=== PATIENT | male | born 1980 | race American Indian/Alaskan Native ===

== ENCOUNTER 2017-09-13 07:56 | Emergency (ER) | payer OTHER ==
[2017-09-13 08:03] VITALS: BP 138/93
--- NOTE | 2017-09-13 09:55 | Emergency Department Report ---
Blank Doc - Documentation Documentation: Patient is a [id number] male with past history diabetes with one month of right lower extremity swelling. Patient states that he also has an open sore on the bottom of his foot at this time has been there for several weeks as well. Patient states it is a tight sensation is aching 6 out of 10 discomfort. Patient was told by his primary doctor month ago that nothing was wrong with his leg. Brief physical exam patient's leg is obviously swollen compared to the left lower extremity. Ultrasound be done to rule out DVT. The patient may have a vascular insufficiency causing edema as well.
--- NOTE | 2017-09-13 11:11 | Emergency Department Report ---
ED Lower Extremity HPI - General Chief Complaint: Extremity Injury, Lower Stated Complaint: R KNEE SWELLING Time Seen by Provider: 09/13/17 09:42 Source: patient Mode of arrival: Ambulatory Limitations: Physical Limitation - History of Present Illness Initial Comments: This is a 37-year-old male nontoxic, well nourished in appearance, no acute signs of distress presents to the ED with c/o of acute on chronic intermittent right lower leg swelling x1 month. Patient stated he is followed by this with primary care doctor and had several tests and exam for DVT with negative. Also stated had xrays within normal limits. Patient describes pain as tight sensation and aching with level of 6/10. Patient denies any trauma. Patient denies any joint swelling, fever, chills, joint redness, headache, stiff neck, back pain, nausea, vomiting, chest pain, shortness of breathe. Patient denies any recent falls, long car rides over his hospital stays. Patient denies any calf tenderness or redness. Patient denies any allergies. Past medical history includes diabetes. -: month(s) (1) Injury: Leg: Right Severity: mild Severity scale (0 -10): 6 Improves With: nothing Worsens With: nothing Associated Symptoms: swelling, ambulatory. denies: snap/pop sensation, numbness , tingling, unable to bear weight, able to partially bear weight - Related Data Home Medications Medication Instructions Recorded Confirmed Last Taken Lisinopril [Zestril TAB] 10 mg PO QDAY 09/22/13 02/22/15 11/09/13 metFORMIN [Glucophage] 1,000 mg PO BID 09/22/13 02/22/15 11/09/13 Insulin NPH/Regular [NovoLIN 70/30] 15 unit SQ QAM 02/22/15 02/22/15 Unknown Insulin NPH/Regular [NovoLIN 70/30] 15 unit SQ QPM 02/22/15 02/22/15 Unknown Previous Rx's Medication Instructions Recorded Last Taken Type Clindamycin [Clindamycin CAP] 450 mg PO TID #90 tab 03/05/15 Unknown Rx oxyCODONE [Roxicodone TAB] 10 mg PO Q6H PRN #30 tablet 03/05/15 Unknown Rx Ibuprofen [Motrin] 600 mg PO Q8H PRN #30 tablet 09/13/17 Unknown Rx Allergies Allergy/AdvReac Type Severity Reaction Status Date / Time No Known Allergies Allergy Verified 09/13/17 07:59 ED Review of Systems ROS: Stated complaint: R KNEE SWELLING Other details as noted in HPI Constitutional: denies: chills, fever Eyes: denies: eye pain, eye discharge, vision change ENT: denies: ear pain, throat pain Respiratory: denies: cough, shortness of breath, wheezing Cardiovascular: denies: chest pain, palpitations Endocrine: no symptoms reported Gastrointestinal: denies: abdominal pain, nausea, diarrhea Genitourinary: denies: urgency, dysuria Musculoskeletal: denies: back pain, joint swelling, arthralgia Skin: denies: rash, lesions Neurological: denies: headache, weakness, paresthesias Psychiatric: denies: anxiety, depression Hematological/Lymphatic: denies: easy bleeding, easy bruising ED Past Medical Hx - Past Medical History Hx Hypertension: Yes Hx Congestive Heart Failure: No Hx Diabetes: Yes Hx Asthma: No Hx COPD: No - Surgical History Additional Surgical History: right knee X 2, broken nose, boil on right arm - Social History Smoking Status: Current Every Day Smoker Substance Use Type: Alcohol - Medications Home Medications: Home Medications Medication Instructions Recorded Confirmed Last Taken Type Lisinopril [Zestril TAB] 10 mg PO QDAY 09/22/13 02/22/15 11/09/13 History metFORMIN [Glucophage] 1,000 mg PO BID 09/22/13 02/22/15 11/09/13 History Insulin NPH/Regular [NovoLIN 70/30] 15 unit SQ QAM 02/22/15 02/22/15 Unknown History Insulin NPH/Regular [NovoLIN 70/30] 15 unit SQ QPM 02/22/15 02/22/15 Unknown History Clindamycin [Clindamycin CAP] 450 mg PO TID #90 tab 03/05/15 Unknown Rx oxyCODONE [Roxicodone TAB] 10 mg PO Q6H PRN #30 tablet 03/05/15 Unknown Rx Ibuprofen [Motrin] 600 mg PO Q8H PRN #30 tablet 09/13/17 Unknown Rx ED Physical Exam - General Limitations: Physical Limitation General appearance: alert, in no apparent distress - Head Head exam: Present: atraumatic, normocephalic - Eye Eye exam: Present: normal appearance - ENT ENT exam: Present: normal exam, mucous membranes moist - Neck Neck exam: Present: normal inspection, full ROM. Absent: tenderness, meningismus, lymphadenopathy - Respiratory Respiratory exam: Present: normal lung sounds bilaterally. Absent: respiratory distress, wheezes, rales, rhonchi, stridor, chest wall tenderness, accessory muscle use, decreased breath sounds, prolonged expiratory - Cardiovascular Cardiovascular Exam: Present: regular rate, normal rhythm, normal heart sounds. Absent: irregular rhythm, systolic murmur, diastolic murmur, rubs, gallop - GI/Abdominal GI/Abdominal exam: Present: soft, normal bowel sounds. Absent: distended, tenderness, guarding, rebound, rigid, diminished bowel sounds - Rectal Rectal exam: Present: deferred - Extremities Exam Extremities exam: Present: normal inspection, full ROM, tenderness, normal capillary refill, pedal edema. Absent: joint swelling, calf tenderness - Expanded Lower Extremity Exam Right Hip exam: Present: normal inspection, full ROM Upper Leg exam: Present: normal inspection, full ROM Knee exam: Present: normal inspection, full ROM, full knee extension. Absent: tenderness, swelling, abrasion, laceration, ecchymosis, deformity, crepidus, dislocation, erythema, effusion, pain w/ pronation/supination, posterior draw sign, pain/laxity with valgus, pain/laxity with varus Lower Leg exam: Present: normal inspection, full ROM, tenderness, swelling. Absent: abrasion, laceration, ecchymosis, deformity, crepidus, dislocation, erythema, palpable cord, Edgardo's sign Ankle exam: Present: normal inspection, full ROM, tenderness, swelling. Absent : abrasion, laceration, ecchymosis, deformity, crepidus, dislocation, erythema, anterior draw sign Foot/Toe exam: Present: normal inspection, full ROM, tenderness, swelling. Absent: abrasion, laceration, ecchymosis, deformity, crepidus, dislocation, erythema, amputation, puncture wound, foreign body, calcaneal tenderness, tenderness at base of 5th metatarsal, nail avulsion, subungual hematoma Neuro vascular tendon exam: Present: no vascular compromise. Absent: pulse deficit, abnormal cap refill, motor deficit, sensory deficit, tendon deficit, extremity cold to touch, pallor, abnormal 2-point discrimination, decreased fine /light touch, foot drop, peroneal nerve deficit, significant pain with passive ROM of distal joint Gait: Positive: observed and normal 1 - pain and swelling here - Back Exam Back exam: Present: normal inspection, full ROM. Absent: tenderness, paraspinal tenderness, vertebral tenderness - Neurological Exam Neurological exam: Present: alert, oriented X3, normal gait - Psychiatric Psychiatric exam: Present: normal affect, normal mood - Skin Skin exam: Present: warm, dry, intact, normal color. Absent: rash ED Course Vital Signs 09/13/17 07:59 Temperature 98.3 F Pulse Rate 110 H Respiratory 18 Rate Blood Pressure 138/93 O2 Sat by Pulse 100 Oximetry - Reevaluation(s) Reevaluation #1: 09/13/17 11:12 Patient is speaking in full sentences with no signs of distress noted. - Consultations Consultation #1: 09/13/17 11:12 Patient has been consulted with Dr. Arredondo about patient history, physical exam , and US and examined and screened patient and agrees to ED plan of care and discharge plan of care. ED Lower Extremity MDM - Medical Decision Making This is a 37-year-old male that presents with right lower leg swelling. Patient is stable and was examined by me. I referred patient to an vascular doctor for further evaluation for possible Doppler venous exam. Doppler exam for DVT/SVT performed and negative. As per Dr. Arredondo, no xrays or further labs needed due to normal exam and vital signs. Patient does have normal gait with no tenderness and no joint swelling. No ecchymosis. no joint redness or swelling. Not warm to touch. No signs of cellulites present. Patient was instructed to RICE therapy. Patient received Motrin for pain. Patient is discharged with Motrin. At time of discharge, the patient does not seem toxic or ill in appearance. No acute signs of distress noted. Patient agrees to discharge treatment plan of care. No further questions noted by the patient. Critical care attestation.: If time is entered above; I have spent that time in minutes in the direct care of this critically ill patient, excluding procedure time. ED Disposition Clinical Impression: Right leg swelling Disposition: DC-01 TO HOME OR SELFCARE Is pt being admited?: No Does the pt Need Aspirin: No Condition: Stable Instructions: RICE Therapy (ED) Additional Instructions: Follow-up with a primary care/vascular doctor in 3-5 days or if symptoms worsen and continue return to emergency room as soon as possible. Prescriptions: Ibuprofen [Motrin] 600 mg PO Q8H PRN #30 tablet PRN Reason: Pain Referrals: PRIMARY CAREMD [Primary Care Provider] - 3-5 Days DAY,JOSSELYN Combs MD [Staff Physician] - 3-5 Days [facility] [Outside] - 3-5 Days [facility] [Outside] - 3-5 Days Forms: Work/School Release Form(ED)
[2017-09-13] MEDS ORDERED: MOTRIN PO ONE (11:13)
--- NOTE | 2017-09-14 10:03 | Vascular Lab Report ---
Right Lower Extremity Venous Duplex Study: Reason for Exam: Pain and swelling of the right lower extremity. Comments on the Right: All veins visualized are freely compressible without evidence of internal echogenicity. Flow is spontaneous and phasic throughout. No evidence of acute or chronic thrombus is seen in any of the vessels visualized. Right inguinal adenopathy is noted. A soft tissue change in the right knee area is consistent with a Casarez's cyst. Comments on the Left: A limited duplex study was done of the proximal veins of the left lower extremity. All veins visualized are freely compressible without evidence of internal echogenicity. Flow is spontaneous and phasic throughout. No evidence of acute or chronic thrombus is seen in any of the vessels visualized. Impression: No evidence of acute or chronic deep venous thrombosis in the right lower extremity. Right inguinal adenopathy is noted. A soft tissue change in the right knee area is consistent with a Casarez's cyst.
== END 2017-09-13 11:29 | disposition home or self-care (01) ==
LOC: ED 07:56
DX: M25.561 Pain in right knee (principal); M79.89 Other specified soft tissue disorders; I10 Essential (primary) hypertension; E11.9 Type 2 diabetes mellitus without complications; F17.200 Nicotine dependence, unspecified, uncomplicated; Z79.4 Long term (current) use of insulin
CPT/HCPCS: 99283

== ENCOUNTER 2017-09-29 21:18 | Emergency (ER) | payer OTHER ==
[2017-09-29 21:35] VITALS: BP 147/85
--- NOTE | 2017-09-29 23:44 | XRay Report ---
FINAL REPORT EXAM: XR CHEST ROUTINE 2V HISTORY: Cough TECHNIQUE: PA and lateral views of the chest were obtained. PRIORS: None. FINDINGS: No lobar consolidation. There is peribronchial thickening mild increased interstitial markings noted in the right cardiophrenic angle. Remaining lungs are clear. There is no pleural effusion or pneumothorax. Suggested mild enlargement of the cardiac silhouette. No acute osseous abnormality. IMPRESSION: Mild right cardiophrenic angle opacities and peribronchial thickening which may be secondary to bronchitis or early pneumonia. There is no lobar consolidation or significant pleural effusion. Mild suggested enlargement of the cardiac silhouette.
== END 2017-09-30 04:28 | disposition left against medical advice (07) ==
LOC: ED 21:18
DX: R05 Cough (principal); Z53.21 Procedure and treatment not carried out due to patient leaving prior to being seen by health care provider
CPT/HCPCS: 71046